=== PATIENT | female | born 1965 | race Caucasian/White ===

== ENCOUNTER → 2017-05-30 | Outpatient (CLI) | payer BC ==
[~2017-05-30] MED LIST: CIPR-255 PO; LEVO150T9 PO; PRLSR20 PO
--- NOTE | 2017-05-30 13:48 | MAMMOGRAPHY REPORT ---
UNILATERAL RIGHT DIGITAL DIAGNOSTIC MAMMOGRAM TOMOSYNTHESIS WITH CAD AND TARGETED RIGHT ULTRASOUND: CLINICAL HISTORY: 51 year-old woman who reports a lump in the right lower inner quadrant for approxim ately one month. It is also tender. She reports it feels a similar to the left breast and in unsure if it truly represents a mass. Family history of breast cancer = sister. TECHNIQUE: Right breast tomosynthesis in addition to standard 2D mammography was performed. Current alexis lala was also evaluated with a Computer Aided Detection (CAD) system. COMPARISON: Comparison is made to exams dated: 10/29/2016 mammogram, 10/24/2015 mammogram, 10/18/2014 mammogram, 09/07/2013 ultrasound, 09/07/2013 mammogram, and 08/17/2013 mammogram - [facility]. BREAST COMPOSITION: There are scattered areas of fibroglandular density in the right breast. FINDINGS: A triangular skin palpable marker overlies the lower inner middle to posterior right breast . No suspicious mass, architectural distortion or cluster of microcalcifications is seen, with parti cular attention to the palpable area. There are a few scattered benign-appearing punctate microcalci fications. Targeted ultrasound was performed in the area of palpable concern pointed out by the patient (4:00 an d 5:00 right breast, 9 cm from the nipple). Normal fibroglandular tissue is seen without a discrete solid or cystic mass. IMPRESSION: ACR BI-RADS CATEGORY 2: BENIGN, TARGETED ULTRASOUND ACR BI-RADS CATEGORY 2: BENIGN Stable mammographic appearance of the right breast. There is no mammographic or targeted sonographic evidence of malignancy, or other suspicious after malady to explain the palpable lump in the right l ower inner quadrant. Therefore, clinical follow-up is recommended as biopsy of a clinically suspicio us mass should not be precluded by negative imaging. Otherwise, return to annual screening mammograp hy schedule. Approximately 10% of breast cancers are not detected with mammography. A negative mammographic report should not delay biopsy if a clinically suggestive mass is present. Ibis Little M.D. ay/:05/30/2017 13:04:02 [employer] Assistant Principal: Carola FISH(Evangelista)(Saniya), [facility] letter sent: Normal 1/2 BI-RADS Code: ACR BI-RADS Category 2: Benign Ultrasound BI-RADS: ACR BI-RADS Category 2: Benign
== END | disposition home or self-care (01) ==
LOC: C.MAMM 12:42
PROVIDERS: ATTEND Nurse Practitioner Adult Health
DX: N63 Unspecified lump in breast (principal)

== ENCOUNTER 2018-01-17 07:33 | Day surgery (SDC) | payer BC ==
[2018-01-13 13:41] VITALS: Ht 165.1 cm; Wt 124.5 kg
--- NOTE | 2018-01-13 14:06 | PAT Medication Instructions ---
Service Date Jan 13, 2018. Current Home Medication List Acetaminophen Tab (Tylenol), 650 MG PO PRN Ciprofloxacin Tab (Cipro), 250 MG PO BID Hydrochlorothiazide (Hydrochlorothiazide), 1 TAB PO PRN Levothyroxine Sodium (Levothyroxine Sodium), 150 MCG PO QAM Omeprazole (Prilosec), 20 MG PO PRN Phenazopyridine HCl (Pyridium), 200 MG PO TID PRN for PRN [Dry Eye], 1 DROP OPB PRN Medication Instructions For Your Scheduled Surgery Ciprofloxacin Tab (Cipro), 250 MG PO BID (to be completed prior to surgery) - Hold the following medications the morning of surgery: Hydrochlorothiazide (Hydrochlorothiazide), 1 TAB PO PRN - Take the following medications the morning of surgery with a sip of water: Acetaminophen Tab (Tylenol), 650 MG PO PRN (okay to take up to 4 hours prior to surgery if needed) Phenazopyridine HCl (Pyridium), 200 MG PO TID PRN for PRN (okay to take up to 4 hours prior to surgery if needed) Levothyroxine Sodium (Levothyroxine Sodium), 150 MCG PO QAM Omeprazole (Prilosec), 20 MG PO PRN (if needed) [Dry Eye], 1 DROP OPB PRN (if needed) - Take the following medications as scheduled the night before surgery: Acetaminophen Tab (Tylenol), 650 MG PO PRN Hydrochlorothiazide (Hydrochlorothiazide), 1 TAB PO PRN (if needed) Omeprazole (Prilosec), 20 MG PO PRN (if needed) Phenazopyridine HCl (Pyridium), 200 MG PO TID PRN for PRN (if needed) [Dry Eye], 1 DROP OPB PRN (if needed) If you have any questions please call us at [phone] or [phone] or [phone]
[2018-01-13 14:54] LABS: BASO % 0.1 %; BASO ABS # 0.01 K/uL (0-0.2); EOS % 0.5 %; EOS ABS # 0.04 K/uL (0-0.5); HEMATOCRIT 39.7 % (37-47); HEMOGLOBIN 13.4 g/dL (12.0-16.0); IG# 0.01 K/uL (0.00-0.02); LYMPH % 20.7 %; LYMPH ABS # 1.59 K/uL (1.2-3.4); MEAN CELL VOLUME 89.6 fL (80-100); MEAN CORPUSCULAR HEMOGLOBIN 30.2 pg (25-34); MEAN CORPUSCULAR HGB CONC 33.8 g/dl (32-36); MEAN PLATELET VOLUME 9.5 fL (7.4-10.4); MONO % 6.3 %; MONO ABS # 0.48 K/uL (0.11-0.59); NEUT % 72.3 %; NEUT ABS # 5.54 K/uL (1.4-6.5); PLATELET COUNT 251 K/uL (130-400); RED CELL DISTRIBUTION WIDTH CV 13.1 % (11.5-14.5); RED CELL DISTRIBUTION WIDTH SD 42.7 fL (36.4-46.3); WHITE BLOOD COUNT 7.67 K/uL (4.8-10.8)
[2018-01-13 15:21] LABS: CREATININE 0.69 mg/dl (0.60-1.20)
[2018-01-13 15:22] LABS: POTASSIUM 3.8 mmol/L (3.5-5.1)
[~2018-01-17] VITALS: Ht 165.1 cm; Wt 124.5 kg
[~2018-01-17 07:33] MED LIST changes: +ACET-1693 PO; -CIPR-255 PO; +CIPR1TAB11 PO; +DRY EYE OPB; +HYDR12.55 PO; +LACTATED RINGER'S 1000ML 1,000 ML IV SCH; +PHEN-876 PO
[2018-01-17 08:28] VITALS: BP 160/71; PULSE 59; TEMP 36.5; O2SAT 99
[2018-01-17] MEDS ORDERED: HYDROmorphone INJ 1 MG/ML SYR IV PRN (08:30)
[2018-01-17] MEDS ORDERED: ATROPINE SULFATE 0.1 MG/ML 5ML SYR IV PRN (08:30)
[2018-01-17] MEDS ORDERED: PROMETHAZINE HCL INJ 12.5 MG in SODIUM CHLORIDE 0.9% 50ML 50 ML IV PRN (08:30)
[2018-01-17] MEDS ORDERED: ONDANSETRON INJ 2 MG/ML 2 ML VIAL IV PRN ×2 (08:30→10:45)
[2018-01-17] MEDS ORDERED: EpHEDrine SULFATE INJ 50 MG/ML AMP IV PRN (08:30)
[2018-01-17] MEDS ORDERED: FENTANYL CITRATE INJ 50 MCG/1 ML 2 ML VIAL IV PRN (08:30)
[2018-01-17] MEDS ORDERED: MIDAZOLAM HCL 1 MG/ML 2ML VIAL ONE (08:32)
[2018-01-17] MEDS ORDERED: PROPOFOL IV EMULSION 10 MG/ML 20 ML VIAL IV ONE (08:32)
[2018-01-17] MEDS ORDERED: LIDOCAINE HCL 2% 2 ML VIAL (20MG/ML) ONE (08:32)
[2018-01-17] MEDS ORDERED: FENTANYL CITRATE INJ 50 MCG/1 ML 2 ML VIAL ONE ×3 (08:32→10:59)
[2018-01-17 08:50] LABS: BASO % 0.1 %; BASO ABS # 0.01 K/uL (0-0.2); EOS % 0.7 %; EOS ABS # 0.05 K/uL (0-0.5); HEMATOCRIT 40.6 % (37-47); HEMOGLOBIN 13.8 g/dL (12.0-16.0); IG# 0.02 K/uL (0.00-0.02); LYMPH ABS # 1.67 K/uL (1.2-3.4); MEAN CELL VOLUME 89.8 fL (80-100); MEAN CORPUSCULAR HEMOGLOBIN 30.5 pg (25-34); MEAN PLATELET VOLUME 9.7 fL (7.4-10.4); MONO % 6.8 %; MONO ABS # 0.47 K/uL (0.11-0.59); NEUT % 68.1 %; NEUT ABS # 4.74 K/uL (1.4-6.5); PLATELET COUNT 229 K/uL (130-400); RED CELL DISTRIBUTION WIDTH SD 42.6 fL (36.4-46.3); WHITE BLOOD COUNT 6.96 K/uL (4.8-10.8)
--- NOTE | 2018-01-17 09:18 | History & Physical Bridge Note ---
H&P Re-Evaluation Bridge Note: I have examined the patient, reviewed the History & Physical and in the interval since the performance of the History & Physical I have noted the following changes of clinical significance: No changes noted
[2018-01-17] MEDS ORDERED: DEXAMETHASONE SOD INJ 4 MG/ML VIAL ONE (10:13)
[2018-01-17] MEDS ORDERED: ONDANSETRON INJ 2 MG/ML 2 ML VIAL ONE ×2 (10:13→10:58)
[2018-01-17] MEDS ORDERED: KETOROLAC TROMETHAMINE 30 MG/ML VIAL ONE (10:13)
--- NOTE | 2018-01-17 10:33 | [facility] Post Operative Brief Note ---
Immediate Operative Summary Operative Date Jan 17, 2018. Pre-Operative Diagnosis Post menopausal bleeding and thickened endometrium. Post-Operative Diagnosis Post menopausal bleeding and thickened endometrium. Procedure(s) Performed Hysteroscopy, Dilation and Curettage, Myosure Polypectomy Surgeon Dr. Encinas Lead Massage Therapist Surgeon(s) None Estimated Blood Loss 10 ml Findings Consistent with Post-Op Diagnosis Fluids (cc crystalloids) 600 Specimens A: Endometrial curettings B: Endometrial polyp Drains None Anesthesia Type General Complication(s) none Disposition Accompanied Pt To Recover: no Disposition: Recovery Room / PACU
[2018-01-17] MEDS ORDERED: SODIUM CHLORIDE 0.9% 1000ML 1,000 ML IV SCH (10:34)
--- NOTE | 2018-01-17 10:36 | Discharge Instructions ---
Discharge Instructions Date of Service Jan 17, 2018. Visit Reason for Visit: Post-Menopausal, Thickened Endometrium Discharge Discharge Diagnosis / Problem: S/P D&C, Hysteroscopy Discharge Goals Goal(s): Decrease discomfort, Improve function Activity Recommendations Activity Limitations: per Instructions/Follow-up section Anesthesia . Post Anesthesia Instructions: If you have had General Anesthesia or IV Sedation: * Do not drive today. * Resume driving when surgeon permits. * Do not make important decisions or sign legal documents today. * Call surgeon for: 1. Temperature elevations greater than 101 degrees F. 2. Uncontrollable pain. 3. Excessive bleeding. 4. Persistent nausea and vomiting. 5. Medication intolerance (nausea, vomiting or rash). * For nausea and vomiting use only clear liquids such as: tea, soda, bouillon until nausea subsides, then gradually increase diet as tolerated. * If you have any concerns or questions, call your surgeon's office. If physician is unavailable and it is an emergency, call 911 or go to the nearest emergency room. . Instructions / Follow-Up Instructions / Follow-Up ACTIVITY RECOMMENDATIONS: * Avoid tampons, douching, hot tubs, pools, and intercourse until bleeding has stopped. * May shower as usual. * No strenuous activity for 24-48 hours. After 24-48 hours, you can do anything you feel like doing (driving and sports are okay). RETURN TO SCHOOL/WORK: * You may return to school or work after 24 hours unless specified by your physician. DIET: * Resume previous diet. MEDICATIONS: Resume previous medications unless instructed otherwise by your surgeon. Ibuprofen 200mg 2-3 tablets every 4-6 hours as needed --OR-- Aleve 2 tablets every 8-12 hours as needed for post-operative discomfort Medications are over the counter. Tylenol may be used if above medications are contraindicated or not preferred. Medication should be taken with food or milk. do not take on an empty stomach. SPECIAL CARE INSTRUCTIONS: * Check temperature twice daily for one week. Report any elevation over 101 degrees. * Call office if you experience increased pelvic pain or discomfort not relieved by pain medicine, if you have foul smelling vaginal discharge, if you have bleeding that is heavier than a normal menstrual flow. If you are changing a maxi pad every 1- 2 hours, this is too heavy. vaginal spotting is normal for 1-2 weeks. FOLLOW UP VISIT: Call your doctor's office for a post-operative visit. Diet Recommendations Recommended Home Diet: no limitations, resume previous diet Procedures Procedures Performed: Hysteroscopy, Dilation and Curettage, Myosure Polypectomy Pending Studies Studies pending at discharge: no Medical Emergencies . Who to Call and When: Medical Emergencies: If at any time you feel your situation is an emergency, please call 911 immediately. . Non-Emergent Contact Non-Emergency issues call your: Primary Care Provider, [employer] Inspector . . "Provider Documentation" section prepared by Nicanor Encinas. .
[2018-01-17] MEDS ORDERED: OXYCODONE/ACETAMINOPHEN 5-325 TAB PO PRN ×2 (10:45)
--- NOTE | 2018-01-17 11:17 | OPERATIVE REPORT ---
DATE OF OPERATION: 01/17/2018 PREOPERATIVE DIAGNOSES: 1. Postmenopausal bleeding. 2. Thickened endometrium. POSTOPERATIVE DIAGNOSES: 1. Postmenopausal bleeding. 2. Thickened endometrium. 3. Endometrial polyps. OPERATIVE PROCEDURE: Hysteroscopy, dilation and curettage and MyoSure polypectomy. SURGEON: Dr. Nicanor Encinas. CONSULTANT INTERNSHIP: None. ANESTHESIA: General. ESTIMATED BLOOD LOSS: 10 mL. IV FLUIDS: 600 mL crystalloids. URINE OUTPUT: 100 mL clear yellow urine. SPECIMENS: Endometrial polyps and curettings to pathology. DRAINS: None. COMPLICATIONS: None. DISPOSITION: To recovery room. OPERATIVE FINDINGS: Upon hysteroscopic examination, there were multiple endometrial polyps located at the fundus of the uterus. There were no submucosal fibroids noted. Utilizing MyoSure, the polyps were removed and sent to pathology. The cervix was then dilated and using a large Schulte curette, a thorough curettage of the cavity was performed, obtaining a minimal amount of tissue, which was also sent to pathology. The uterus sounded to 10 cm. Bilateral tubal ostia were clearly visualized. Excellent hemostasis was noted. The patient tolerated the procedure well and was sent to recovery with stable vital signs. OPERATIVE PROCEDURE IN DETAIL: The patient was taken to the operating room, where general anesthesia was administered. Once anesthesia was found to be adequate, the patient was placed in the dorsal lithotomy position and was prepped and draped in a manner appropriate for the procedure. Bladder was then drained of clear yellow urine. A weighted speculum was then placed into the vagina and the anterior lip of the cervix was grasped with a single tooth tenaculum. The hysteroscope was then introduced into the uterine cavity and a thorough examination was then performed. It was noted that there were multiple endometrial polyps. The MyoSure was then introduced into the camera and into the uterine cavity. The polyps were then successfully removed with the MyoSure. Once the polyps were removed, the hysteroscope and MyoSure were removed from the uterus. The cervix was then dilated using Josie dilators. Utilizing a large Schulte curette, a thorough curettage of the endometrial cavity was performed, obtaining a minimal amount of tissue, which was sent to pathology as well. At this point, the procedure was found to be complete. All instruments were then removed from the vagina. Excellent hemostasis was noted. All sponge and instrument counts were found to be correct x2. The patient tolerated the procedure well and was sent to recovery with stable vital signs. I attest to the content of the Intraoperative Record and any orders documented therein. Any exception s are noted below.
--- NOTE | 2018-01-17 11:18 | Anesthesiology Progress Note ---
Anesthesia Post Op Note Date & Time Jan 17, 2018 at 11:18 Vital Signs Pain Intensity: 2 Vital Signs Past 12 Hours Date Time Temp Pulse Resp B/P (MAP) Pulse Ox O2 Delivery O2 Flow Rate FiO2 01/17/18 11:15 36.5 45 16 154/78 95 Room Air 01/17/18 11:05 47 16 150/80 95 Room Air 01/17/18 10:55 48 18 155/84 95 Oxymask 01/17/18 10:45 44 18 153/73 100 Oxymask 10 01/17/18 10:38 36.3 56 18 164/79 100 Oxymask 10 01/17/18 08:28 36.5 59 20 160/71 (100) 99 Room Air Notes Mental Status: alert / awake / arousable, participated in evaluation Pt Amnestic to Procedure: Yes Nausea / Vomiting: adequately controlled Pain: adequately controlled Airway Patency, RR, SpO2: stable & adequate BP & HR: stable & adequate Hydration State: stable & adequate Anesthetic Complications: no major complications apparent
[2018-01-17 11:20] VITALS: BP 133/64; PULSE 49; TEMP 36.4; O2SAT 99
[2018-01-17 11:50] VITALS: BP 149/76; PULSE 50; TEMP 36.4; O2SAT 100
[2018-01-17 12:20] VITALS: BP 148/73; PULSE 51; TEMP 36.5; O2SAT 97
== END 2018-01-17 12:35 | disposition home or self-care (01) ==
LOC: C.ACU 07:33
PROVIDERS: ATTEND Obstetrics & Gynecology
DX: N95.0 Postmenopausal bleeding (principal); N84.0 Polyp of corpus uteri; F41.9 Anxiety disorder, unspecified; I10 Essential (primary) hypertension; K21.9 Gastro-esophageal reflux disease without esophagitis; E03.9 Hypothyroidism, unspecified; E78.00 Pure hypercholesterolemia, unspecified; I87.2 Venous insufficiency (chronic) (peripheral); E66.01 Morbid (severe) obesity due to excess calories; Z83.3 Family history of diabetes mellitus; Z82.49 Family history of ischemic heart disease and other diseases of the circulatory system; Z80.0 Family history of malignant neoplasm of digestive organs; Z80.3 Family history of malignant neoplasm of breast; Z79.899 Other long term (current) drug therapy; Z88.8 Allergy status to other drugs, medicaments and biological substances; Z88.2 Allergy status to sulfonamides

== ENCOUNTER → 2018-03-11 | Outpatient (CLI) | payer BC ==
[~2018-03-11] MED LIST changes: -LACTATED RINGER'S 1000ML 1,000 ML IV SCH
--- NOTE | 2018-03-12 07:51 | MAMMOGRAPHY REPORT ---
BILATERAL DIGITAL SCREENING MAMMOGRAM TOMOSYNTHESIS WITH CAD: 03/11/2018 CLINICAL HISTORY: Routine screening. Patient has no complaints. TECHNIQUE: Breast tomosynthesis in addition to standard 2D mammography was performed. Current study was also evaluated with a Computer Aided Detection (CAD) system. COMPARISON: Comparison is made to exams dated: 05/30/2017 mammogram, 10/29/2016 mammogram, 10/24/2015 m ammogram, 10/18/2014 mammogram, 08/17/2013 mammogram, and 07/17/2012 mammogram - [facility]. BREAST COMPOSITION: There are scattered areas of fibroglandular density in both breasts. FINDINGS: The parenchymal pattern is unchanged. No developing mass, architectural distortion or clus ter of suspicious microcalcifications is seen in either breast. IMPRESSION: ACR BI-RADS CATEGORY 2: BENIGN There is no mammographic evidence of malignancy. A 1 year screening mammogram is recommended. The pa tient will receive written notification of the results. Approximately 10% of breast cancers are not detected with mammography. A negative mammographic report should not delay biopsy if a clinically suggestive mass is present. Ibis Little M.D. ay/:03/11/2018 15:53:52 Material Mixer: Ghislaine FISH(R)(M), [facility] letter sent: Normal 1/2 BI-RADS Code: ACR BI-RADS Category 2: Benign
== END | disposition home or self-care (01) ==
LOC: C.MAMM 13:11
PROVIDERS: ATTEND Nurse Practitioner
DX: Z12.31 Encounter for screening mammogram for malignant neoplasm of breast (principal)